=== PATIENT | female | born 1975 | race Caucasian/White ===

== ENCOUNTER 2017-05-11 10:17 | Emergency (ER) | payer OTHER ==
[~2017-05-11] VITALS: Ht 162.6 cm; Wt 99.8 kg
[~2017-05-11 10:17] MED LIST: AUGMENTIN 875875 MG PO; BACTRIM DS TAB1 EACH PO; BENADRYL25 MG PO; BENTYL10 MG PO; BLOOD PRESSURE; CIPRO500 MG PO; COZAAR 25 MG TA25 M1 PO; DIFLUCAN150 M1 PO; FLAGYL500 MG PO; GABAPENTIN 100100 MG PO; HYDROCODONE-AP1 EAC6 PO; IBUPROFEN 800800 M1 PO; LIPITOR10 MG PO; NAPROSYN500 MG PO; NEURONTIN 300300 M1 PO; NOHOMEMEDICATIONS; ONDANSETRON HCL4 M2 PO; PERCOCET 5-3251 EACH PO; PHENTERMINE HCL15 MG PO; PRILOSEC 20 MG20 MG PO; ROBAXIN 750 MG750 M1 PO; TRAMADOL 50 MG50 MG PO; ULTRAM 50MG TAB50 MG PO
[2017-05-11 10:45] LABS: URINE BILIRUBIN NEGATIVE (Negative); URINE BLOOD NEGATIVE (Negative); URINE CLARITY CLEAR; URINE COLOR YELLOW; URINE GLUCOSE-RANDOM NEGATIVE (Negative); URINE KETONES NEGATIVE (Negative); URINE LEUKOCYTES-REFLEX NEGATIVE (Negative); URINE NITRITE-REFLEX NEGATIVE (Negative); URINE PROTEIN NEGATIVE (Negative); URINE UROBILINOGEN 0.2 E.U./dl (0.2-1.0)
[2017-05-11 11:08] LABS: ABSOLUTE BASOPHILS 0.1 thou/uL (0.0-0.2); ABSOLUTE EOSINOPHILS 0.1 thou/uL (0.0-0.7); ABSOLUTE LYMPHOCYTES 2.2 thou/uL (0.8-5.3); ABSOLUTE MONOCYTES 0.5 thou/uL (0.0-1.2); ABSOLUTE NEUTROPHILS 5.4 thou/uL (1.6-8.1); BASOPHILS 0.9 %; EOSINOPHILS 0.8 %; HEMATOCRIT 36.6 % (37.0-47.0); HEMOGLOBIN 12.6 gm/dL (12.0-15.0); MCH 29.2 pg (26.0-34.0); MCHC 34.4 g/dL (28.0-37.0); MCV 85.1 fL (80.0-100.0); MONOCYTES 5.7 %; MPV 8.5 fl. (7.2-11.1); NUCLEATED RBCS 0 /100WBC; PLATELET COUNT* 194 thou/uL (150-400); POLYS 65.6 %; RBC 4.31 mil/uL (4.20-5.00); RDW-CV 13.7 % (10.5-14.5); WBC 8.2 thou/uL (4.0-11.0)
[2017-05-11 11:15] LABS: ANION GAP 9 mmol/L (7-16); BUN 18 mg/dL (7-18); CALCIUM 8.3 mg/dL (8.5-10.1); CHLORIDE 105 mmol/L (98-107); CO2 25 mmol/L (21-32); CREATININE 0.8 mg/dL (0.6-1.3); GLUCOSE 91 mg/dL (70-99); POTASSIUM 3.4 mmol/L (3.5-5.1); SODIUM 139 mmol/L (136-145)
[2017-05-11 11:24] LABS: ALBUMIN 3.3 g/dL (3.4-5.0); ALKALINE PHOSPHATASE 52 U/L (46-116); LIPASE 106 U/L (73-393); SGOT 11 U/L (15-37); SGPT 19 U/L (30-65); TOTAL BILIRUBIN 0.4 mg/dL (<0.1-1.0); TOTAL PROTEIN 6.9 g/dL (6.4-8.2); TROPONIN-I LEVEL <0.06 ng/mL (<0.06)
[2017-05-11] MEDS ORDERED: ONDANSETRON HCL4 M2 PO (11:37)
[2017-05-11] MEDS ORDERED: HYDROCODONE-AP1 EAC6 PO (11:37)
[2017-05-11 12:07] VITALS: BP 110/70
== END 2017-05-11 12:08 | disposition home or self-care (01) ==
LOC: M.ERS 10:17
PROVIDERS: Physician Assistant
DX: R10.9 Unspecified abdominal pain (principal); I10 Essential (primary) hypertension; E78.5 Hyperlipidemia, unspecified; Z77.22 Contact with and (suspected) exposure to environmental tobacco smoke (acute) (chronic); Z88.5 Allergy status to narcotic agent; Z90.710 Acquired absence of both cervix and uterus; Z98.890 Other specified postprocedural states; Z96.659 Presence of unspecified artificial knee joint

== ENCOUNTER 2017-05-20 21:34 | Emergency (ER) | payer OTHER ==
[~2017-05-20] VITALS: Ht 162.6 cm; Wt 99.8 kg
[2017-05-20] MEDS ORDERED: NORCO 5-325 TA1 EAC1 PO (23:05)
[2017-05-20 23:23] VITALS: BP 129/71
== END 2017-05-20 23:24 | disposition home or self-care (01) ==
LOC: M.ERS 21:34
DX: S89.82XA Other specified injuries of left lower leg, initial encounter (principal); I10 Essential (primary) hypertension; E78.5 Hyperlipidemia, unspecified; Z98.890 Other specified postprocedural states; Z90.49 Acquired absence of other specified parts of digestive tract; Z87.442 Personal history of urinary calculi; Z88.5 Allergy status to narcotic agent; Z77.22 Contact with and (suspected) exposure to environmental tobacco smoke (acute) (chronic); W18.49XA Other slipping, tripping and stumbling without falling, initial encounter; Y93.89 Activity, other specified; Y92.89 Other specified places as the place of occurrence of the external cause; Y99.8 Other external cause status

== ENCOUNTER 2018-09-24 20:28 | Emergency (ER) | payer OTHER ==
[~2018-09-24] VITALS: Ht 162.6 cm; Wt 90.7 kg
[~2018-09-24 20:28] MED LIST changes: +NORCO 5-325 TA1 EAC1 PO
[2018-09-24] MEDS ORDERED: LIPITOR10 MG PO (20:42)
[2018-09-24] MEDS ORDERED: GARAMYCIN5 ML OPHTHALMIC (21:03)
[2018-09-24 21:10] VITALS: BP 154/87
== END 2018-09-24 21:10 | disposition home or self-care (01) ==
LOC: M.ERS 20:28
DX: S05.01XA Injury of conjunctiva and corneal abrasion without foreign body, right eye, initial encounter (principal); I10 Essential (primary) hypertension; E78.5 Hyperlipidemia, unspecified; Z90.710 Acquired absence of both cervix and uterus; Z96.659 Presence of unspecified artificial knee joint; Z90.49 Acquired absence of other specified parts of digestive tract; Z98.890 Other specified postprocedural states; Z87.442 Personal history of urinary calculi; Z88.5 Allergy status to narcotic agent; Z77.22 Contact with and (suspected) exposure to environmental tobacco smoke (acute) (chronic); W22.8XXA Striking against or struck by other objects, initial encounter; Y93.E9 Activity, other interior property and clothing maintenance; Y92.098 Other place in other non-institutional residence as the place of occurrence of the external cause; Y99.8 Other external cause status

== ENCOUNTER 2019-04-08 14:15 | Emergency (ER) | payer OTHER ==
[~2019-04-08] VITALS: Ht 162.6 cm; Wt 99.8 kg
[~2019-04-08 14:15] MED LIST changes: +GARAMYCIN5 ML OPHTHALMIC
[2019-04-08] MEDS ORDERED: COZAAR 25 MG TA25 MG PO (14:25)
[2019-04-08 14:58] LABS: ABSOLUTE BASOPHILS 0.1 thou/uL (0.0-0.2); ABSOLUTE EOSINOPHILS 0.1 thou/uL (0.0-0.7); ABSOLUTE LYMPHOCYTES 2.1 thou/uL (0.8-5.3); ABSOLUTE MONOCYTES 0.5 thou/uL (0.0-1.2); ABSOLUTE NEUTROPHILS 5.8 thou/uL (1.6-8.1); BASOPHILS 0.8 %; EOSINOPHILS 0.8 %; HEMATOCRIT 41.3 % (37.0-47.0); HEMOGLOBIN 14.4 gm/dL (12.0-15.0); LYMPHOCYTES 24.6 %; MCHC 34.8 g/dL (28.0-37.0); MCV 83.3 fL (80.0-100.0); MONOCYTES 5.6 %; MPV 8.3 fl. (7.2-11.1); NUCLEATED RBCS 0 /100WBC; PLATELET COUNT* 249 thou/uL (150-400); POLYS 68.2 %; RBC 4.96 mil/uL (4.20-5.00); RDW-CV 14.3 % (10.5-14.5); WBC 8.5 thou/uL (4.0-11.0)
[2019-04-08] MEDS ORDERED: AMOXICILLIN 50500 MG PO (15:03)
[2019-04-08] MEDS ORDERED: ZOFRAN ODT4 MG SUBLING (15:03)
[2019-04-08] MEDS ORDERED: MOTION RELIEF25 MG PO (15:03)
[2019-04-08 15:07] LABS: CALCIUM 8.4 mg/dL (8.5-10.1); CREATININE 0.9 mg/dL (0.6-1.3); POTASSIUM 4.1 mmol/L (3.5-5.1)
[2019-04-08 15:09] LABS: APTT 27.5 Seconds (25.0-31.3); PROTIME 10.2 Seconds (9.20-11.50)
[2019-04-08 15:14] LABS: URINE BILIRUBIN NEGATIVE (Negative); URINE BLOOD NEGATIVE (Negative); URINE CLARITY CLEAR; URINE COLOR YELLOW; URINE GLUCOSE-RANDOM NEGATIVE (Negative); URINE KETONES NEGATIVE (Negative); URINE LEUKOCYTES-REFLEX TRACE (Negative); URINE NITRITE-REFLEX NEGATIVE (Negative); URINE PROTEIN NEGATIVE (Negative); URINE UROBILINOGEN 0.2 E.U./dl (0.2-1.0)
[2019-04-08 15:24] LABS: ALBUMIN 3.6 g/dL (3.4-5.0); TOTAL BILIRUBIN 0.3 mg/dL (<0.1-1.0); TOTAL PROTEIN 7.7 g/dL (6.4-8.2)
[2019-04-08 15:34] LABS: CRYSTALS None Seen /LPF (None Seen); HYALINE CASTS 0-3 Few /LPF (None Seen); SQUAMOUS >10 Many /LPF (0-3)
[2019-04-08 15:35] LABS: BACTERIA-REFLEX 1-9 Few /HPF (None Seen); URINE RBC 0-2 Rare /HPF (0-2); URINE WBC-REFLEX 0-5 Rare /HPF (0-5)
[2019-04-08 16:00] VITALS: BP 113/67
--- NOTE | 2019-04-09 09:59 | EKG ---
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[place] : 1975 Requested By: Alex Marsh Order Number: [id number] MD: Manuel Duke Measurements Intervals [place] Rate: 62 P: 31 [place]: 157 QRS: 24 QRSD: 91 T: 43 QT: 447 QTc: 454 Interpretive Statements Sinus rhythm Low voltage, precordial leads Baseline wander in lead(s) II,III,aVF Compared to ECG 12/24/2014 18:06:28 Low QRS voltage now present Sinus tachycardia no longer present Electronically Signed On 04-09-2019 9:58:32 HUMAN RESOURCE MANAGER by Manuel Duke [email or web address] <ELECTRONICALLY SIGNED> By: Manuel Duke MD, [facility] 04/09/19 0958 1455 1455 Manuel Duke MD, [facility] /EPI
== END 2019-04-08 16:03 | disposition home or self-care (01) ==
LOC: M.ERS 14:15
PROVIDERS: Family Medicine
DX: H66.91 Otitis media, unspecified, right ear (principal); R42 Dizziness and giddiness; I10 Essential (primary) hypertension; Z88.5 Allergy status to narcotic agent; Z90.710 Acquired absence of both cervix and uterus; E78.5 Hyperlipidemia, unspecified; Z96.659 Presence of unspecified artificial knee joint; Z90.49 Acquired absence of other specified parts of digestive tract; Z87.442 Personal history of urinary calculi; Z98.890 Other specified postprocedural states

== ENCOUNTER 2020-09-02 16:25 | Observation (INO) | payer OTHER ==
[~2020-09-02] VITALS: Ht 162.6 cm; Wt 108.9 kg
[~2020-09-02 16:25] MED LIST changes: +AMOXICILLIN 50500 MG PO; +COZAAR 25 MG TA25 MG PO; +LIPITOR40 MG PO; +MOTION RELIEF25 MG PO; +ZOFRAN ODT4 MG SUBLING
[2020-09-02 16:27] VITALS: BP 153/87
[2020-09-02] MEDS ORDERED: NEURONTIN300 MG PO (16:32)
[2020-09-02 16:49] LABS: CREATININE 0.9 mg/dL (0.6-1.3); POTASSIUM 3.5 mmol/L (3.5-5.1)
[2020-09-02 17:00] LABS: ALBUMIN 3.5 g/dL (3.4-5.0); MAGNESIUM 1.7 mg/dL (1.8-2.4); TOTAL BILIRUBIN 0.1 mg/dL (<0.1-1.0); TOTAL PROTEIN 7.7 g/dL (6.4-8.2)
[2020-09-02 18:03] LABS: ABSOLUTE BASOPHILS 0.1 thou/uL (0.0-0.2); ABSOLUTE EOSINOPHILS 0.2 thou/uL (0.0-0.7); ABSOLUTE LYMPHOCYTES 3.2 thou/uL (0.8-5.3); ABSOLUTE MONOCYTES 0.4 thou/uL (0.0-1.2); ABSOLUTE NEUTROPHILS 6.1 thou/uL (1.6-8.1); BASOPHILS 0.8 %; EOSINOPHILS 1.8 %; HEMATOCRIT 42.1 % (37.0-47.0); HEMOGLOBIN 14.6 gm/dL (12.0-15.0); LYMPHOCYTES 32.1 %; MCH 28.7 pg (26.0-34.0); MCHC 34.8 g/dL (28.0-37.0); MCV 82.6 fL (80.0-100.0); MONOCYTES 4.1 %; MPV 8.9 fl. (7.2-11.1); NUCLEATED RBCS 0 /100WBC; PLATELET COUNT* 235 thou/uL (150-400); POLYS 61.2 %; RDW-CV 14.5 % (10.5-14.5)
[2020-09-02 19:20] VITALS: BP 132/65
[2020-09-02 20:00] VITALS: BP 117/71
[2020-09-02] MEDS ORDERED: SINGULAIR 10 MG10 MG PO (23:05)
[2020-09-02] MEDS ORDERED: FLEXERIL PO ×2 (23:06)
[2020-09-02] MEDS ORDERED: HYDROXYZINE HCL25 M2 PO (23:08)
[2020-09-02] MEDS ORDERED: HYDROCHLOROTHIA50 MG PO (23:27)
[2020-09-02] MEDS ORDERED: FLUOXETINE PO (23:33)
[2020-09-02] MEDS ORDERED: COZAAR 25 MG TA25 MG PO (23:44)
[2020-09-03 01:09] VITALS: BP 127/73
[2020-09-03 05:48] VITALS: BP 104/69
[2020-09-03 08:16] VITALS: BP 114/64
[2020-09-03 12:00] VITALS: BP 142/87
--- NOTE | 2020-09-03 12:10 | EKG ---
[place] [address] ELECTROCARDIOGRAM REPORT Name: ABHINAV MCLAUGHLIN Room: [address]#: [id number] Admission: 09/02/20 Attend Phys: Nakul Thornton Discharge: Date of : 73 Date of Service: 09/02/20 1628 Report #: [id number] THIS REPORT FOR: //name// [facility] ED Test Date: 2020-09-02 Test Time: 16:28:50 Pat Name: ABHINAV MCLAUGHLIN Department: Room: [facility] Gender: F Guest Room Inspector: MIRIAN : 1975 Requested By: Francisco Sinha Order Number: [id number] MD: Milo King Measurements Intervals [place] Rate: 107 P: 42 [place]: 169 QRS: 20 QRSD: 86 T: 58 QT: 332 QTc: 443 Interpretive Statements Sinus tachycardia Minimal ST elevation, inferior leads Compared to ECG 04/08/2019 14:55:56 ST (T wave) deviation now present Sinus rhythm no longer present Electronically Signed On 09-03-2020 12:10:24 CDT by Milo King [email or web address] <ELECTRONICALLY SIGNED> By: Milo King MD, FACC 09/03/20 1210 1628 1628 Milo King MD, FAC /EPI
[2020-09-03 16:58] VITALS: BP 142/87
--- NOTE | 2020-09-04 14:25 | EXE ---
[place] [address] STRESS ECHOCARDIOGRAM Name: ABHINAV MCLAUGHLIN Room: [address] Vikas Kumar#: [id number] Admission: 09/02/20 Attend Phys: Nakul Thornton Discharge: 09/03/20 Date of : 73 Date of Service: 09/03/20 1549 Report #: [id number] THIS REPORT FOR: cc: Atilio Wheeler Robin L. FNP Liston, Michael J. MD [facility] ~ APPROVED REPORT Study performed: 09/03/2020 11:30:13 Exam: Stress Echocardiogram Indication: Chest pain , Dyspnea Patient Location: In-Patient Stress Nurse: Naomy Baldwin RN Room #: [facility] Supervising Physician: Milo King MD Ht: 5 ft 4 in HR: 98 bpm BP: 119/91 mmHg Medical History Cardiac Risk Factors: Hyperlipidemia, HTN, FHX of CAD Procedure The patient underwent an Exercise Stress Test using the Mik Protocol. Blood pressure, heart rate, and EKG were monitored. An Echocardiogram was performed by automotive diagnostic technician in four stages in quad fashion. At peak stress, four selected images were obtained and placed side by side with resting images for comparison. Stress Test Details Stress Test: Exercise stress testing was performed using a Mik protocol. HR Resting HR: 98 bpm Max Heart Rate (APMHR): 174 bpm Max HR Achieved: 162 bpm Target HR (85% APMHR): 147 bpm % of APMHR: 93 Recovery HR: 114 bpm HR response to stress: Normal HR response to stress BP Resting BP: 119/91 mmHg Max BP: 150/72 mmHg Recovery BP: 123/86 [place] [address] STRESS ECHOCARDIOGRAM Name: ABHINAV MCLAUGHLIN Marina Room: [address]#: [id number] Admission: 09/02/20 Attend Phys: Nakul Thornton Discharge: 09/03/20 Date of : 73 Date of Service: 09/03/20 1549 Report #: [id number] BP response to stress: Normal blood pressure response to stress. ECG Resting ECG: Sinus Rhythm Stress ECG: Sinus Tachycardia ST Change: None Arrhythmia: None Recovery ECG: Sinus Rhythm Recovery ST Change: None Recovery Arrhythmia: None Clinical Reason for Termination: Completed protocol Exercise duration: 7 min sec Highest Stage Achieved: Stage 3: 3.4 mph at 14% grade. Exercise capacity: 8.44 METs The patient tolerated standard Mik protocol exercise without significant cardiac symptoms. Stress ECG Conclusion Baseline twelve-lead EKG shows sinus rhythm without significant ST segment or T wave abnormality. EKGs obtained during and post exercise show sinus rhythm and sinus tachycardia with no significant ST segment or T wave changes when compared to baseline. There were no stress-induced arrhythmias. Pre-Stress Echo The resting Echocardiogram showed normal left ventricular contractility with an estimated Ejection Fraction of about 60-65%. The resting echocardiogram demonstrated normal wall motion in all wall segments. Post-Stress Echo The stress Echocardiogram showed normal left ventricular contractility with an estimated Ejection Fraction of about >70%. Compared to rest, there were no stress-induced wall motion abnormalities. Conclusion Clinical Response: Non-ischemic Exercise Capacity: Average Stress ECG Response: Non-ischemic Stress Echo Images: [place] [address] STRESS ECHOCARDIOGRAM Name: ABHINAV MCLAUGHLIN Room: [address]#: [id number] Admission: 09/02/20 Attend Phys: Nakul Thornton Discharge: 09/03/20 Date of : 73 Date of Service: 09/03/20 1549 Report #: [id number] Other Information Study Quality: Good <ELECTRONICALLY SIGNED> By: Milo King MD, FACC 09/03/20 1549 1549 1549 Milo King MD, FACC /INF
== END 2020-09-03 17:29 | disposition home or self-care (01) ==
LOC: M.ERS 16:25 → M.TBA-ER 17:41 → M.2W 19:20
PROVIDERS: Emergency Medicine Emergency Medical Services; ADMIT Internal Medicine; ATTEND Internal Medicine
DX: R07.89 Other chest pain (principal); I10 Essential (primary) hypertension; E78.5 Hyperlipidemia, unspecified; Z20.822 Contact with and (suspected) exposure to COVID-19; E66.9 Obesity, unspecified; M19.90 Unspecified osteoarthritis, unspecified site; J45.909 Unspecified asthma, uncomplicated; E83.42 Hypomagnesemia; Z90.49 Acquired absence of other specified parts of digestive tract; Z90.710 Acquired absence of both cervix and uterus; Z90.89 Acquired absence of other organs; Z98.890 Other specified postprocedural states; Z88.6 Allergy status to analgesic agent

== ENCOUNTER 2020-09-15 20:40 | Emergency (ER) | payer OTHER ==
[~2020-09-15] VITALS: Ht 162.6 cm; Wt 108.9 kg
[~2020-09-15 20:40] MED LIST changes: +FLEXERIL PO; +FLUOXETINE PO; +HYDROCHLOROTHIA50 MG PO; +HYDROXYZINE HCL25 M2 PO; +NEURONTIN300 MG PO; +SINGULAIR 10 MG10 MG PO
[2020-09-15 21:23] LABS: URINE BILIRUBIN NEGATIVE (Negative); URINE BLOOD NEGATIVE (Negative); URINE CLARITY SL HAZY; URINE COLOR YELLOW; URINE GLUCOSE-RANDOM NEGATIVE (Negative); URINE KETONES NEGATIVE (Negative); URINE LEUKOCYTES-REFLEX TRACE (Negative); URINE NITRITE-REFLEX NEGATIVE (Negative); URINE PROTEIN NEGATIVE (Negative); URINE UROBILINOGEN 0.2 E.U./dl (0.2-1.0)
[2020-09-15 21:30] LABS: MUCUS None Seen strn/LPF (None Seen); SQUAMOUS >10 Many /LPF (0-3)
[2020-09-15 21:31] LABS: URINE WBC-REFLEX 0-5 Rare /HPF (0-5)
[2020-09-15 21:32] LABS: CASTS None Seen /LPF (None Seen); CRYSTALS None Seen /LPF (None Seen); URINE RBC None Seen /HPF (0-2)
[2020-09-15 21:54] LABS: ABSOLUTE BASOPHILS 0.1 thou/uL (0.0-0.2); ABSOLUTE LYMPHOCYTES 1.8 thou/uL (0.8-5.3); ABSOLUTE NEUTROPHILS 7.7 thou/uL (1.6-8.1); BASOPHILS 0.7 %; EOSINOPHILS 0.4 %; HEMATOCRIT 45.6 % (37.0-47.0); HEMOGLOBIN 15.9 gm/dL (12.0-15.0); LYMPHOCYTES 17.1 %; MCH 29.2 pg (26.0-34.0); MCHC 34.9 g/dL (28.0-37.0); MCV 83.7 fL (80.0-100.0); MPV 8.2 fl. (7.2-11.1); NUCLEATED RBCS 0 /100WBC; PLATELET COUNT* 230 thou/uL (150-400); POLYS 72.8 %; RBC 5.45 mil/uL (4.20-5.00); RDW-CV 14.5 % (10.5-14.5); WBC 10.6 thou/uL (4.0-11.0)
[2020-09-15 22:04] LABS: CALCIUM 8.9 mg/dL (8.5-10.1); POTASSIUM 3.4 mmol/L (3.5-5.1)
[2020-09-15 22:09] LABS: ALBUMIN 3.5 g/dL (3.4-5.0); TOTAL BILIRUBIN 0.5 mg/dL (<0.1-1.0); TOTAL PROTEIN 8.8 g/dL (6.4-8.2)
[2020-09-15] MEDS ORDERED: CIPROFLOXACIN500 M1 PO (23:29)
[2020-09-15] MEDS ORDERED: ZOFRAN ODT4 MG PO (23:29)
[2020-09-15] MEDS ORDERED: HYDROCODON-ACE1 EAC8 PO (23:29)
[2020-09-15] MEDS ORDERED: FLAGYL500 M1 PO (23:29)
[2020-09-15 23:52] VITALS: BP 126/79
--- NOTE | 2020-09-16 11:38 | EKG ---
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
== END 2020-09-15 23:53 | disposition home or self-care (01) ==
LOC: M.ERS 20:40
PROVIDERS: Physician Assistant
DX: K57.32 Diverticulitis of large intestine without perforation or abscess without bleeding (principal); R11.2 Nausea with vomiting, unspecified; I10 Essential (primary) hypertension; E78.5 Hyperlipidemia, unspecified; K21.9 Gastro-esophageal reflux disease without esophagitis; Z77.22 Contact with and (suspected) exposure to environmental tobacco smoke (acute) (chronic); Z98.890 Other specified postprocedural states; Z90.49 Acquired absence of other specified parts of digestive tract; Z87.442 Personal history of urinary calculi; Z90.710 Acquired absence of both cervix and uterus; Z96.659 Presence of unspecified artificial knee joint

== ENCOUNTER 2020-11-11 14:01 | Emergency (ER) | payer OTHER ==
[~2020-11-11] VITALS: Ht 162.6 cm; Wt 108.9 kg
[~2020-11-11 14:01] MED LIST changes: +CIPROFLOXACIN500 M1 PO; +FLAGYL500 M1 PO; +HYDROCODON-ACE1 EAC8 PO; +ZOFRAN ODT4 MG PO
[2020-11-11 15:34] LABS: URINE BILIRUBIN NEGATIVE (Negative); URINE BLOOD NEGATIVE (Negative); URINE CLARITY CLEAR; URINE COLOR YELLOW; URINE GLUCOSE-RANDOM NEGATIVE (Negative); URINE KETONES NEGATIVE (Negative); URINE LEUKOCYTES-REFLEX NEGATIVE (Negative); URINE NITRITE-REFLEX NEGATIVE (Negative); URINE PROTEIN NEGATIVE (Negative); URINE UROBILINOGEN 0.2 E.U./dl (0.2-1.0)
[2020-11-11 15:44] LABS: ABSOLUTE BASOPHILS 0.1 thou/uL (0.0-0.2); ABSOLUTE EOSINOPHILS 0.1 thou/uL (0.0-0.7); ABSOLUTE MONOCYTES 0.5 thou/uL (0.0-1.2); ABSOLUTE NEUTROPHILS 4.1 thou/uL (1.6-8.1); BASOPHILS 1.3 %; EOSINOPHILS 1.3 %; HEMATOCRIT 43.2 % (37.0-47.0); HEMOGLOBIN 14.6 gm/dL (12.0-15.0); LYMPHOCYTES 38.3 %; MCH 28.4 pg (26.0-34.0); MCHC 33.7 g/dL (28.0-37.0); MCV 84.1 fL (80.0-100.0); MONOCYTES 6.4 %; MPV 8.3 fl. (7.2-11.1); NUCLEATED RBCS 0 /100WBC; PLATELET COUNT* 221 thou/uL (150-400); POLYS 52.7 %; RBC 5.14 mil/uL (4.20-5.00); RDW-CV 13.9 % (10.5-14.5); WBC 7.7 thou/uL (4.0-11.0)
[2020-11-11 15:54] LABS: CALCIUM 8.9 mg/dL (8.5-10.1); CREATININE 0.8 mg/dL (0.6-1.3); POTASSIUM 3.5 mmol/L (3.5-5.1)
[2020-11-11 16:00] LABS: ALBUMIN 3.7 g/dL (3.4-5.0); TOTAL BILIRUBIN 0.4 mg/dL (<0.1-1.0); TOTAL PROTEIN 7.8 g/dL (6.4-8.2)
[2020-11-11] MEDS ORDERED: NORCO5 PO (16:21)
[2020-11-11] MEDS ORDERED: ONDANSETRON ODT4 MG PO ×2 (16:21→16:22)
[2020-11-11] MEDS ORDERED: ZOFRAN ODT4 MG PO (16:21)
[2020-11-11] MEDS ORDERED: HYDROCODON-ACE1 EAC8 PO ×2 (16:22→16:25)
[2020-11-11 16:32] VITALS: BP 107/58
== END 2020-11-11 16:33 | disposition home or self-care (01) ==
LOC: M.ERS 14:01
PROVIDERS: Physician Assistant
DX: R10.12 Left upper quadrant pain (principal); R10.32 Left lower quadrant pain; R11.2 Nausea with vomiting, unspecified; I10 Essential (primary) hypertension; E78.5 Hyperlipidemia, unspecified; K21.9 Gastro-esophageal reflux disease without esophagitis; Z88.5 Allergy status to narcotic agent; Z77.22 Contact with and (suspected) exposure to environmental tobacco smoke (acute) (chronic); Z98.890 Other specified postprocedural states; Z90.49 Acquired absence of other specified parts of digestive tract; Z87.442 Personal history of urinary calculi; Z90.710 Acquired absence of both cervix and uterus